=== PATIENT | female | born 1960 | race African-American/Black ===

== ENCOUNTER 2021-02-10 11:39 | Inpatient (IN) | payer MEDICARE ==
[~2021-02-10] VITALS: Ht 182.9 cm; Wt 81.6 kg
[2021-02-10 12:56] LABS: HEMOGLOBIN 13.4 gm/dl (12.3-15.3); RED BLOOD COUNT 4.68 M/UL (4.00-5.10); WHITE BLOOD COUNT 4.7 K/UL (4.5-11.0)
[2021-02-10 13:29] LABS: BUN/CREATININE RATIO 5 (0-10)
[2021-02-11 04:53] LABS: HEMOGLOBIN 12.4 gm/dl (12.3-15.3); RED BLOOD COUNT 4.35 M/UL (4.00-5.10)
[2021-02-11] MEDS ORDERED: FISH OIL 1,0001 EACH PO (19:12)
[2021-02-11] MEDS ORDERED: DRISDOL1250 MCG PO (19:13)
[2021-02-11] MEDS ORDERED: NORVASC2.5 MG PO (19:14)
[2021-02-11] MEDS ORDERED: OXYCODONE HCL5 MG PO (19:15)
[2021-02-11] MEDS ORDERED: LOSARTAN POTASS25 MG PO (19:15)
[2021-02-11] MEDS ORDERED: CYCLOBENZAPRINE10 MG PO (19:16)
[2021-02-11] MEDS ORDERED: VITAMIN B COMP1 EAC1 PO (19:17)
[2021-02-11] MEDS ORDERED: VISTARIL25 MG PO (19:17)
[2021-02-11] MEDS ORDERED: DAILY VALUE1 EACH PO (19:17)
[2021-02-11] MEDS ORDERED: VITAMIN B-121000 MCG PO (19:18)
[2021-02-11] MEDS ORDERED: ARTIFICIAL TEAR15 M6 EYEBOTH (19:20)
--- NOTE | 2021-02-12 00:06 | NUR ---
came to help with admissions and pt care. Pt request a phone that worked, she also stated she needed more than peanut butter, she expected a meal. supervisor pipe manufacture had gotten her a lunch box from the kitchen, I got a phone, xanex, flexril and pain med. I flushed the secured her IV and restarted her IV med. gave her her oral medications. She ask why the xanex was 1/2 an pill and I explained that was what is ordered. She ask who ordered it and ask if they was psychiatric doctor. I explained that our hospitalist could ordered medications for anxiety, and other psych medications as needed. She ask that I assess two "boils" she had in her private area. When assessing I found on the left labia a hard, circular area measuring 1cm X 1cm and a second hard circular area measuring 0.5cm X 0.5cm. Neither was hot or showed signs of inflammation. I took her to the bathroom and back to the bedside where she began to eat her dinner. In moving her table and IV pole I noticed her phone plugged into the wall and it looked as though the video was recording. I ask if there was anything else I could help her with. She then ask for a heat pack. I got 3 thermo- heat packs and placed one on her left flank area, one on the left side of her neck/shoulder area and one for her right ankle. I educated the patient about her call light and phone and the need to call out for assistance.
[2021-02-12 07:16] LABS: HEMOGLOBIN 12.6 gm/dl (12.3-15.3); RED BLOOD COUNT 4.46 M/UL (4.00-5.10); WHITE BLOOD COUNT 4.5 K/UL (4.5-11.0)
[2021-02-13 06:17] LABS: HEMOGLOBIN 12.4 gm/dl (12.3-15.3); RED BLOOD COUNT 4.38 M/UL (4.00-5.10); WHITE BLOOD COUNT 5.4 K/UL (4.5-11.0)
[2021-02-14 07:32] LABS: HEMOGLOBIN 12.5 gm/dl (12.3-15.3); RED BLOOD COUNT 4.47 M/UL (4.00-5.10); WHITE BLOOD COUNT 5.7 K/UL (4.5-11.0)
--- NOTE | 2021-02-14 14:23 | NUR ---
02/14/21 1420 AMBULATED TO BATHROOM ROOM AIR SAT IS 84%. DR MORRISON NOTIFIED
--- NOTE | 2021-02-14 19:00 | NUR ---
IN PATIENT'S ROOM AT THIS TIME FOR EVENING INITAL ROUNDS AND ASSESSMENT. RONA CASTRO IS ALSO PRESENT IN ROOM AT THIS TIME OBTAINING VITALS. UPON COMPLETION OF PHYSICAL ASSESSMENT PATIENT VOICES "DONT TAKE THIS PERSONAL BUT I CANT STAND STRONG SMELLS." I ASKED PATIENT IF THERE WAS A PROBLEM OR THERE WAS A STRONG SMELL AND SHE REPLIES AT THIS TIME, "YOU GOT SOME PERFUME OR LOTION OR SOMETHING I CANT DEAL WITH THAT." I ASSURED PATIENT THAT I DIDNT APPLY PERFUME OR LOTION PRIOR TO SHIFT, BUT THAT I HAD SHOWERED PRIOR TO WORK AND MAYBE MY SHAMPOO OR BODY WASH WAS BOTHERING HER, BUT THAT I DID HAVE ON A HAIR NET AND PLASTIC GOWN DUE TO COVID, AND THAT I WOULD BE BACK WITH HER EVENING MEDICATIONS AND WOULD WEAR AN ADDITIONAL HAIR BONNET AND GOWN. I APOLOGIZED FOR ANY INCONVIENCE BUT AGAIN REASSURED PATIENT THAT I DONT WEAR THIS TYPES OF THINGS DUE TO PATIENT CARE/WORK. AT THIS TIME, I PREPARED TO DOFF MY PPE AND TOLD PATIENT I WOULD RETURN. SHE ASKED FOR THE TECH THAT WAS IN THE ROOM TO BRING HER PUDDING, PEANUT BUTTER, YULIA CRACKERS, MILK AND ICE WATER. I WAS EXITING ROOM MATTHEW REA ENTERED ROOM AT THIS TIME I HEARD PATIENT VOICE ADDTIONAL COMPLAINTS ABOUT STRONG FRAGRANCES.
--- NOTE | 2021-02-14 21:00 | NUR ---
IN TO PATIENTS ROOM AT THIS TIME FOR MEDICATION ADMINISTRATION. I WAS PRIMING IV TUBING FOR REMDESIVIER ADMINISTRATION PATIENT VOICES, "WOULD YOU PLEASE EXCUSE YOURSELF FROM MY ROOM" I ASKED PATIENT IF THERE WAS SOMETHING I HAD DONE TO UPSET HER, AT WHICH THIS TIME SHE REPEATED "PLEASE EXCUSE YOURSELF FROM MY ROOM" IN A RUDE TONE OF VOICE. I APOLGIZED TO PATIENT FOR ANY PROBLEM, BUT WAS CONFUSED TO WHY PATIENT WAS UPSET. I INFORMED HER THAT I WOULD HAVE ANOTHER RN COME IN TO ADMINISTER HER MEDICATION. GAURAV RN IN TO ROOM AT THIS TIME TO ADMINISTER PATIENT MEDICATIONS, GAURAV EXITS ROOM AND STATES THAT PATIENT ASKED HER TO EXCUSE HERSELF FROM HER ROOM WELL STATING THAT PATIENT VOICED "YOUR FABRIC SOFTENER IS TO STRONG". AT THIS TIME I DID NOTIFY CORE MAKER HELPER SUNG ABOUT OCCURENCE, AND THAT PATIENT HAS ASKED 2 HAND SHOE CUTTER AND 2 RNS TO NOT COME BACK INTO ROOM.
--- NOTE | 2021-02-14 22:00 | NUR ---
GONSALO PAREDES IN TO PATIENT ROOM TO OBTAIN VITAL SIGNS, PATIENT VOICES "WHY DO YOU KEEP COMING IN HERE, YOU JUST KEEP COMING IN HERE FOR MEANUS BECAUSE YOU KNOW I CANT STAND YOUR SMELL! GET OUT OF HERE!" OXYACETYLENE WELDER SUNG MADE AWARE OF PATIENT NOT WANTING MULTIPLE STAFF MEMBERS IN ROOM . ALL STAFF MEMBERS ENTERING ROOM ARE WEARING FULL PPE, GOWN, GLOVES, MASK, HAIR BONNETS, FACIAL BRITT.
--- NOTE | 2021-02-15 01:00 | NUR ---
PATIENT IV PUMP ALARMING AT THIS TIME. CHUY RN IN TO FLUSH IV LINE AND UPON ENTERING, RN STATES THAT PATIENT IV IS UNHOOKED FROM THE HUB AND PATIENT STATED "RIGHT ON TIME, THIS PUMP HAS BEEN BEEPING FOREVER." TAMI PELAYO STATES THAT SHE CLEANED AND ATTEMPTED TO FLUSH IV , AND LEAKING NOTED AROUND CATH SITE.
[2021-02-16 09:31] LABS: HEMOGLOBIN 12.9 gm/dl (12.3-15.3); RED BLOOD COUNT 4.91 M/UL (4.00-5.10); WHITE BLOOD COUNT 7.1 K/UL (4.5-11.0)
[2021-02-16 09:58] LABS: BUN/CREATININE RATIO 15 (0-10)
[2021-02-18 07:40] LABS: HEMOGLOBIN 12.6 gm/dl (12.3-15.3); RED BLOOD COUNT 4.67 M/UL (4.00-5.10); WHITE BLOOD COUNT 8.1 K/UL (4.5-11.0)
[2021-02-18 08:10] LABS: BUN/CREATININE RATIO 22 (0-10)
--- NOTE | 2021-02-19 23:39 | NUR ---
TELEY CALLED STATED PT WAS OFF O2 MONITOR, I ATTEMPTED TO ENTER THE PATIENT ROOM AT 2033 AFTER KNOCKING, THE PT STATED FOR ME TO STEP OUT OF HER ROOM, I TOLD HER SHE WASNT ON THE O2 MONTIOR AND I NEEDED AND BEFORE I COULD FINISH MY SENTENCE IN A HIGHER TONE THE PT STATED TO PLEASE STEP OUT OF HER ROOM. RUSSELL WHO WAS ASSISTING THE TECH TONIGHT. I ASKED HER IF SHE WOULD SEE IF SHE WOULD LET HER HOOK HER BACK UP. RUSSELL HOOKED THE PT UP WITH NO INCIDENCE.
[2021-02-20] MEDS ORDERED: ELIQUIS5 MG PO (18:05)
[2021-02-20] MEDS ORDERED: LEVALBUTER0.63 MG/3 NEB (18:05)
[2021-02-20] MEDS ORDERED: AMLODIPINE BESY10 MG PO (18:05)
[2021-02-20] MEDS ORDERED: COZAAR 50MG TAB50 MG PO (18:05)
[2021-02-20] MEDS ORDERED: PROAIR HFA8.5 GM INH (18:12)
--- NOTE | 2021-02-22 00:43 | NUR ---
02/21/2021 1900 During shift report the said the pt was to be discharged, but case management did not tell the patient. So I went in to let the patient know that put her discharge in and she was to go home. After a 15 minute dialog from the patient about why case management did not do her job and get her the oxygen to go home with approved, she stated that she was not leaving until tomorrow when they sent her home with oxygen. I explained that the insurance nor the [facility] would approve her for oxygen because her O2 sat was 99% on room air. The patient's oxygen was laying on the bed and she was 99% on room air. She then proceeded to put her oxygen on, and I told her I would let Dr. Davis and supervisor kosher dietary service know. I called [place] and she said that Dr. Davis would have to come explain to the patient or she would have to stay here until tomorrow. I then called Dr. Davis and explained the events above. She said case management would have to get her discharged tomorrow. I let the scalehouse attendant know. The patient refused her 6pm vital signs. I was able to check her vitals during med pass and she was WNL with a O2 of 100% on 3 Liters. I turned the oxygen down to 2 L and the patient said "now wait just a minute, you can't turn that oxygen down!" I explained that she did not need it on 3 liters and the effects of having the oxygen higher than necessary. She then said "that's ok, I'll turn it up myself," which she did.
--- NOTE | 2021-02-22 02:47 | NUR ---
0242 PT PULLED OUT HER CORD, WHEN I WENT IN TO HOOK IT BACK UP, PT BECAME IRRITABLE AND WAS YELLING "THAT'S ENOUGH, YOUR DOING TOO MUCH. IN HERE STINKING WITH THAT PERFUME." I EXPLAINED THAT I WAS SORRY, AND I DIDN'T HAVE PERFUME ON. I EXPLAINED THAT I SHE ACCIDENTLY PULLED HER CORD OUT AND I HAD TO PLUG IT BACK IN. I PLUGGED IT BACK IN, ALL THE WHILE PT COMPLAINING I NEEDED TO GO ON OUT OF HER ROOM.
--- NOTE | 2021-02-22 11:15 | NUR ---
RN ATTEMPTED TO OBTAIN A ROOM AIR PULSE OX DURING AMBULATION ON PATIENT. PATIENT STOOD UP AND STATED THAT SHE DIDN'T WANT HOME OXYGEN AND ALL SHE WANTED WAS HER IV TAKEN OUT. RN REMOVED OXYGEN, PATIENT DISPLAYED NO S/SX OF HYPOXIA AND CONTINUED TO REFUSE TELE/PULSE OX WELL OXYGEN SATURATION READING PER STAFF.
--- NOTE | 2021-02-22 13:16 | NUR ---
7252 Patient refused to sign discharge papers, stated, "I don't sign anything I'm going to be responsible for." Dr Ramos called to inform.
== END 2021-02-22 13:21 | disposition home or self-care (01) | DRG 177 ==
LOC: ER1 11:39 → CDU 17:15 → MED SURG 4 17:59
PROVIDERS: Emergency Medicine; Internal Medicine; ADMIT Internal Medicine
PROC: 8E0ZXY6 Isolation (ICD-10-PCS; principal; 2021-02-10)
PROC: 3E0333Z Introduction of Anti-inflammatory into Peripheral Vein, Percutaneous Approach (ICD-10-PCS; 2021-02-10)
PROC: XW033E5 Introduction of Remdesivir Anti-infective into Peripheral Vein, Percutaneous Approach, New Technology Group 5 (ICD-10-PCS; 2021-02-10)
DX: U07.1 COVID-19 (principal); J12.82 Pneumonia due to coronavirus disease 2019; I26.99 Other pulmonary embolism without acute cor pulmonale; J15.9 Unspecified bacterial pneumonia; I50.42 Chronic combined systolic (congestive) and diastolic (congestive) heart failure; Z96.659 Presence of unspecified artificial knee joint; M19.90 Unspecified osteoarthritis, unspecified site; F17.210 Nicotine dependence, cigarettes, uncomplicated; S92.254A Nondisplaced fracture of navicular [scaphoid] of right foot, initial encounter for closed fracture; I11.0 Hypertensive heart disease with heart failure; M25.571 Pain in right ankle and joints of right foot; K21.9 Gastro-esophageal reflux disease without esophagitis; F43.10 Post-traumatic stress disorder, unspecified; W01.0XXA Fall on same level from slipping, tripping and stumbling without subsequent striking against object, initial encounter; I27.20 Pulmonary hypertension, unspecified; Z98.49 Cataract extraction status, unspecified eye; Z88.8 Allergy status to other drugs, medicaments and biological substances; Z88.5 Allergy status to narcotic agent; Z79.899 Other long term (current) drug therapy; Z91.14 Patient's other noncompliance with medication regimen; Y92.89 Other specified places as the place of occurrence of the external cause; Y93.89 Activity, other specified
CPT/HCPCS: ECHO; 36415; 71045; 73600; 80048; 80053; 81001; 82009; 82550; 82553; 83605; 83690; 83735; 83880; 84484; 85025; 85027; 85379; 93005; 93306; 94640; 94664; 94760; 99285; J0456; J1650; J7030; Q0177; Q9967; U0002